=== PATIENT | male | born 1965 | race Caucasian/White ===

== ENCOUNTER 2021-01-08 11:51 | Emergency (ER) | payer OTHER, SELFPAY ==
--- NOTE | ~2021-01-08 | CT_ITS ---
EXAMINATION: CT HEAD WITHOUT CONTRAST CLINICAL INFORMATION: Trauma, laceration COMPARISON: None TECHNIQUE: Contiguous axial imaging was performed from the skull base to vertex without intravenous administration of contrast. Additional 2-D coronal and sagittal reformatted images are generated on the CT workstation and uploaded to PACS. This CT examination was performed using dose optimization techniques as appropriate, variously including the following: *Automated exposure control *Adjustment of mA and/or kV according to patient size (this includes techniques or standardized protocols for targeted exams where dose is matched to indication/reason for exam; i.e. extremities or head) *Use of iterative reconstruction technique DLP: 753 mGy-cm FINDINGS: There is focal high attenuation in the right luisana approximately 0.8 cm in size. No mass effect. Finding is of uncertain significance. This could represent a cavernoma with or without petechial hemorrhage. This could be related to nearby vascular malformation with petechial hemorrhage. Solitary metastasis less likely. MRI without and with gadolinium contrast recommended to further characterize. The remainder of the brain shows no intracranial hemorrhage or hematoma or extra-axial fluid. No intraventricular hemorrhage. There is no hydrocephalus, midline shift. The mccartney-white matter differentiation appears symmetric. There is no visible acute territorial infarct. The calvarium appears intact. There is no pneumocephalus or orbital emphysema. No air-fluid levels in the visualized sinuses and middle ears or mastoids. Results called to emergency department (Nadia Magaña NP) at [address]/CT head/brain wo con IMPRESSION: 1. Focal nodular high attenuation in luisana 0.8 cm. Differential considerations include cavernoma, nearby vascular malformation with petechial hemorrhage, solitary metastasis, among other entities. Recommend further evaluation with MRI without and with gadolinium contrast. 2. Otherwise, no intracranial hemorrhage, hydrocephalus, or mass effect.
--- NOTE | ~2021-01-08 | MR_ITS ---
EXAMINATION: MR BRAIN WITHOUT AND WITH CONTRAST CLINICAL INFORMATION: Question lesion in the luisana. COMPARISON: CT scan of the head 01/08/2021. TECHNIQUE: Multiplanar MR imaging of the brain was performed without and with contrast. A total of 10 mL Gadavist was utilized for this examination. FINDINGS: There is a small lobulated T2 hyperintense lesion located within the right dorsal luisana best illustrated on axial image 9 of 27 series 9 measuring approximately 0.5 cm in diameter. There is susceptibility artifact associated with this lesion demonstrated on the gradient recalled echo sequence. Findings are therefore consistent with a cavernous malformation. Postcontrast images reveal no abnormal mass or enhancement within the intracranial compartment. No intracranial mass effect or midline shift. Lateral and third ventricles are proportionate to the subarachnoid spaces. No hydrocephalus. Midline structures including the cervicomedullary junction are normal. No acute bone marrow signal changes. There is no acute territorial infarct. Intracranial vascular flow voids are maintained. There is no mastoid middle ear effusion. Mild to moderate paranasal sinus disease primarily affecting the ethmoid air cells. Globes and orbits are symmetric. MR/MR head/brain wo/w con IMPRESSION: There is a 0.5 cm cavernous malformation involving the right dorsal luisana. Otherwise normal brain MRI.
[2021-01-08 12:05] VITALS: BP 142/87; PULSE 94; RESP 16; TEMP 36.6; O2SAT 96; BMI 33.0
--- NOTE | 2021-01-08 12:26 | ED.HEATRA ---
HPI - Head Injury General Chief complaint: Head Injury Stated complaint: head injury Time Seen by Provider: 01/08/21 12:17 Source: patient Mode of arrival: ambulatory Limitations: no limitations History of Present Illness HPI Narrative: Patient was at work when a 1 gallon water jug fell from 2 ft above him hitting his head. Patient is here with a laceration to the head. There was no loss of consciousness. He has a mild headache. No vision changes, nausea, vomiting, dizziness. Denies anticoagulation use Related Data Allergies Allergy/AdvReac Type Severity Reaction Status Date / Time No Known Allergies Allergy Verified 01/08/21 12:04 Review of Systems Review of Systems: Yes all other systems are reviewed and are negative Constitutional: Constitutional: Reports no additional constitutional complaints, Denies body ache(s), Denies chills, Denies fever(s), Reports headache(s) and Denies weakness Eyes: Eyes: Reports no additional eye complaints and Denies change in vision ENT: Reports system reviewed and no additional complaints, except as documented, Denies dizziness, Reports headache(s), Denies nasal congestion, Denies nasal discharge and Denies neck pain Cardiovascular: Cardiovascular: Reports no additional cardiovascular complaints, Denies chest pain, Denies leg edema and Denies dyspnea Respiratory: Respiratory: Reports no additional respiratory complaints, Denies cough and Denies dyspnea Gastrointestinal: Gastrointestinal: Reports no additional gastrointestinal complaints, Denies abdominal pain, Denies diarrhea, Denies nausea and Denies vomiting Genitourinary: Genitourinary: Denies urinary incontinence Musculoskeletal: Musculoskeletal: Reports no additional musculoskeletal complaints, Denies back pain, Denies arthralgias, Denies joint swelling, Denies neck pain, Denies numbness and Denies tingling Integumentary/Breasts: Skin/Breast: Reports system reviewed and no additional complaints, except as docu and Denies rash Comments: +laceration Neurologic: Reports system reviewed and no additional complaints, except as documented, Denies Abnormal speech present, Denies dizziness, Reports headache(s), Denies numbness, Denies tingling and Denies weakness Comments: +head injury [facility] Past Medical History Attestation statement: The following information was validated with the patient. Source: old records reviewed and nursing notes reviewed Medical History No known health problems Social History Social History Smoked in Last 30 Days: No Use of substances other than those prescribed or required for medical reasons: No Advance Directives: No Advance Directives Information Provided: Yes Physical Exam Vital Signs: Vital Signs: Last Vital Signs Temp 97.6 F 01/08/21 15:03 Pulse 73 01/08/21 15:03 Resp 16 01/08/21 15:03 BP 153/92 H 01/08/21 15:03 Pulse Ox 98 01/08/21 15:03 Body Mass Index 33.0 Const: General: cooperative, healthy appearing, comfortable and no acute distress Orientation/consciousness: patient oriented x3 Limitations: no limitations HENMT: Head: Yes normal to inspection Head images: 1. 4 cm laceration, slight bleeding noted. No bogginess or hematoma noted. No crepitus Ears: hearing grossly normal bilaterally General nose exam: Normal external nose present Face and sinus: Yes normal facial exam Mouth: Normal oral and palatal mucosa present Throat: Yes posterior oropharynx normal Eyes: General: appearance normal, both eyes and all related structures Pupils: Equal, round and reactive pupils present Neck: Neck: Yes normal visual inspection Chest: Chest palpation & inspection: normal inspection of the chest Resp: Effort & Inspection: normal respiratory effort Auscultation: clear to auscultation bilaterally Cardio: Rate: regular rate Rhythm: regular rhythm Peripheral pulses: Peripheral pulses 2+ throughout GI: Inspection: Yes normal to inspection Palpation (GI): Soft to palpation and nontender Auscultation: normal bowel sounds Back/Spine/Pelvis: Thoracic/Lumbar Spine: thoracic and lumbar spine normal to inspection Skin: General skin exam: no rashes or lesions noted Neuro: General: patient oriented x3, no focal motor deficits and normal sensation to monofilament Cranial nerves: Yes CN's II-XII intact bilaterally, Yes Equal, round and reactive pupils present, Yes Bilaterally intact EOM present, Yes Nystagmus not present, Yes Normal facial strength present and Yes Midline tongue present Cognition (Neuro): normal cognition Speech: No Abnormal speech present Gait exam (Neuro): Normal gait present Motor exam (neuro): 5/5 motor strength present throughout Sensory Exam: Normal double simultaneous stimulation for sensation Extrem: General: Yes normal to inspection Course Course Course Narrative: Head injury at work with laceration present. Normal neural exam. Will check CT head and patient will need wound repair. 1310-call from radiologist. Small lesion in midline luisana likely incidental however cannot r/o ICH. Recommended MRI stat. Discussed with patient who is agreeable to this. 1500-MRI shows 0.5 cm cavernous malformation involving the right dorsal luisana. Likely incidental finding. Patient was given a copy of the report to take home and follow-up with his primary care doctor. Labs reviewed and unremarkable. See wound repair note. Recommended following up with occupational health. Reviewed worrisome signs and symptoms when to return to the emergency department. Comfortable discharge home. Procedures Procedure Narrative Procedure Narrative: 4 cm laceration to the scalp. Bleeding controlled. Four lawrence placed with no complication MDM - Head Injury Medical Records Attestation: I reviewed the patient's medical records. Lab Data Attestation: I reviewed the patient's lab results. Result diagrams: 01/08/21 13:24 01/08/21 13:24 Labs: Lab Results 01/08/21 01/08/21 Range/Units 13:24 13:24 WBC 5.9 (4.8-10.8) X10*3/uL RBC 4.80 (4.60-5.80) X10*6/uL Hgb 14.7 (14.0-18.0) g/dl Hct 41.6 L (42-52) % MCV 86.7 (80-98) fL MCH 30.6 (27.0-33.0) pg MCHC 35.3 (31.0-36.0) g/dl RDW 12.7 (11.0-16.0) % Plt Count 239 (160-400) X10*3/uL MPV 9.3 L (9.4-12.4) fL Immature Gran % (Auto) 0.3 (0.0-0.4) % Neut % (Auto) 75.8 H (45-73) % Lymph % (Auto) 14.0 L (20-40) % Cloud % (Auto) 8.1 (2-11) % Eos % (Auto) 1.3 (0-4) % Baso % (Auto) 0.5 (0-2) % Lymph # (Auto) 0.8 L (1.2-4.9) X10*3/uL Cloud # (Auto) 0.5 (0.1-1.2) X10*3/uL Eos # (Auto) 0.1 (0.0-0.4) X10*3/uL Baso # (Auto) 0.0 (0.0-0.2) X10*3/uL Abs Immat Gran (auto) 0.02 (0.00-0.03) X10*3/uL Absolute Neuts (auto) 4.5 (2.0-8.3) X10*3/uL Absolute Nucleated RBC 0.000 (0.0-0.012) X10*3/uL Nucleated RBC % (auto) 0.0 (0.0-0.2) /100WBC Sodium 141 (135-145) mmol/L Potassium 4.1 (3.3-5.1) mmol/L Chloride 103 (96-108) mmol/L Carbon Dioxide 28 (22-29) mmol/L Anion Gap 14 (12-20) BUN 14 (9-16) mg/dL Creatinine 0.93 (0.5-1.4) mg/dL Estim Creat Clear Calc 108.5 Estimated GFR > 60 Random Glucose 102 (60-115) mg/dL Calcium 9.3 (8.4-10.2) mg/dL Imaging Data CT scan - head: Attestation: I personally reviewed and interpreted this imaging study as follows: Radiologist's impression: CT/CT head/brain wo con IMPRESSION: 1. Focal nodular high attenuation in luisana 0.8 cm. Differential considerations include cavernoma, nearby vascular malformation with petechial hemorrhage, solitary metastasis, among other entities. Recommend further evaluation with MRI without and with gadolinium contrast. 2. Otherwise, no intracranial hemorrhage, hydrocephalus, or mass effect. MRI - head: Attestation: I personally reviewed and interpreted this imaging study as follows: Radiologist's impression: IMPRESSION: There is a 0.5 cm cavernous malformation involving the right dorsal luisana. Otherwise normal brain MRI. Discharge Plan Discharge Clinical Impression: Laceration, Cavernous malformation, Head injury Patient Disposition: Home, Self-Care Instructions: Head Injury (ED), Head Laceration (ED) Additional Instructions: Your MRI showed a cavernous malformation in the brain. You were given a copy of the MRI report. She can follow-up with your primary care doctor in regards to this. You had 4 lawrence placed in your head. These need to be removed in 10-14 days. Follow up with [facility] as this was a work related injury. Call them at [phone] to make an appointment. Referrals: Physician,Unknown [Primary Care Provider] - 2 days Discharge Date/Time: 01/08/21 15:06
[2021-01-08 13:31] LABS: MANUAL DIFF FLAG NO
[2021-01-08 13:35] LABS: Basophils Percent Auto 0.5 % (0-2); Eosinophils Absolute Auto 0.1 X10*3/uL (0.0-0.4); Eosinophils Percent Auto 1.3 % (0-4); Hematocrit 41.6 % (42-52); Hemoglobin 14.7 g/dl (14.0-18.0); Imm Gran Abs Auto 0.02 X10*3/uL (0.00-0.03); Imm Gran Pct Auto 0.3 % (0.0-0.4); Lymphocytes Absolute Auto 0.8 X10*3/uL (1.2-4.9); Mean Corpuscular HGB Conc 35.3 g/dl (31.0-36.0); Mean Corpuscular Hemoglobin 30.6 pg (27.0-33.0); Mean Corpuscular Volume 86.7 fL (80-98); Mean Platelet Volume 9.3 fL (9.4-12.4); Monocytes Absolute Auto 0.5 X10*3/uL (0.1-1.2); Monocytes Percent Auto 8.1 % (2-11); Neutrophils Absolute Auto 4.5 X10*3/uL (2.0-8.3); Neutrophils Percent Auto 75.8 % (45-73); Platelet Count 239 X10*3/uL (160-400); Red Cell Distribution Width 12.7 % (11.0-16.0); White Blood Count 5.9 X10*3/uL (4.8-10.8)
[2021-01-08 14:44] LABS: Anion Gap 14 (12-20); Blood Urea Nitrogen 14 mg/dL (9-16); Calcium 9.3 mg/dL (8.4-10.2); Carbon Dioxide 28 mmol/L (22-29); Chloride 103 mmol/L (96-108); Creatinine Clr Calc Pharmacy 108.5; Estimated Glomerular Filt Rate > 60; Glucose Random 102 mg/dL (60-115); Potassium 4.1 mmol/L (3.3-5.1); Sodium 141 mmol/L (135-145)
[2021-01-08 15:03] VITALS: BP 153/92; PULSE 73; RESP 16; TEMP 36.4; O2SAT 98
== END 2021-01-08 15:06 | disposition home or self-care (01) ==
PROVIDERS: Nurse Practitioner Family; Emergency Provider Emergency Medicine Emergency Medical Services
DX: S01.91XA Laceration without foreign body of unspecified part of head, initial encounter (principal); S06.9X0A Unspecified intracranial injury without loss of consciousness, initial encounter; G44.309 Post-traumatic headache, unspecified, not intractable; Y29.XXXA Contact with blunt object, undetermined intent, initial encounter; Y93.9 Activity, unspecified; Y92.9 Unspecified place or not applicable; Y99.9 Unspecified external cause status
CPT/HCPCS: 12002; 36415; 70450; 70553; 80048; 85025; 96374; 99284; A9585